=== PATIENT | female | born 1995 | race Caucasian/White ===

== ENCOUNTER 2017-12-20 22:00 | Emergency (ER) | payer SELFPAY ==
[~2017-12-20] VITALS: Ht 152.4 cm; Wt 40.8 kg
== END 2017-12-21 01:42 | disposition home or self-care (01) ==
LOC: ED 22:00
DX: O02.1 Missed abortion (principal)
CPT/HCPCS: 76801; 76817; 80053; 84702; 84703; 85025; 86900; 86901; 99284

== ENCOUNTER 2019-02-06 15:21 | Emergency (ER) | payer SELFPAY ==
[~2019-02-06] VITALS: Ht 152.4 cm; Wt 40.8 kg
--- OUTSIDE RECORDS SUMMARY | 2019-02-06 15:24 | XMS ---
PreManage Notification: MELVIN FARAH [employer] Director Events No recent Security Events currently on file CRITERIA MET - Group Notification CARE PROVIDERS There are no care providers on record at this time. Meliza has no Care Guidelines for this patient. [facility] VISIT COUNT (12 MO.) 1 WILLIE [facility] TOTAL 1 NOTE: Visits indicate total known visits. ED/C VISIT TRACKING (12 MO.) 02/06/2019 15:21 [facility] TYPE: Emergency COMPLAINT: - R KNEE PAIN INPATIENT VISIT TRACKING (12 MO.) No inpatient visits to display in this time frame [email or web address]
== END 2019-02-06 15:30 | disposition home or self-care (01) ==
LOC: ED 15:21
DX: M25.561 Pain in right knee (principal)